=== PATIENT | male | born 1995 | race Caucasian/White ===

== ENCOUNTER 2021-02-10 08:08 | Emergency (ER) | payer OTHER ==
[2021-02-10 08:26] VITALS: BP 128/82; PULSE 55; TEMP 98.4; BMI 36.7
== END 2021-02-10 09:30 | disposition home or self-care (01) ==
LOC: JCOVINFU 08:08
DX: J20.9 Acute bronchitis, unspecified (principal)
CPT/HCPCS: 71046-TC-FY; 87804; 99284-25; C9803; U0003; U0005

== ENCOUNTER 2022-02-26 08:25 | Emergency (ER) | payer OTHER ==
[2022-02-26 08:53] VITALS: BP 145/83; PULSE 90; RESP 18; TEMP 98; BMI 36.3
[2022-02-26] MEDS ORDERED: ONDANSETRON *ODT* 4 MG TABLET SL ONE (09:16)
[2022-02-26] MEDS ORDERED: ALBUTEROL SO4 0.083% IH SOL 2.5 MG/3 ML VIAL.NEB. NEB ONE (09:16)
[2022-02-26] MEDS ORDERED: ONDANSETRON *ODT* 4 MG TABLET ONE (10:05)
[2022-02-26] MEDS ORDERED: ALBUTEROL SO4 2.5/IPRATROPIUM 0.5 INH SOL 3 ML VIAL.NEB. NEB ONE (10:05)
== END 2022-02-26 15:29 | disposition home or self-care (01) ==
LOC: JER 08:25
PROC: 3E0F7GC Introduction of Other Therapeutic Substance into Respiratory Tract, Via Natural or Artificial Opening (ICD-10-PCS; principal; 2022-02-26)
DX: J09.X2 Influenza due to identified novel influenza A virus with other respiratory manifestations (principal); R05.1 Acute cough; R51.9 Headache, unspecified; J02.9 Acute pharyngitis, unspecified
CPT/HCPCS: 0241U-QW; 99283-25; Q0162

== ENCOUNTER 2023-02-21 06:10 | Emergency (ER) | payer OTHER ==
[2023-02-21 06:28] VITALS: RESP 18; BMI 36.7
[2023-02-21] MEDS ORDERED: LIDOCAINE 4% PATCH TP ONE ×2 (07:41→07:47)
[2023-02-21] MEDS ORDERED: KETOROLAC TROMETHAMINE 30 MG/1 ML VIAL IM ONE (07:41)
[2023-02-21] MEDS ORDERED: ACETAMINOPHEN 325 MG TABLET (FP) PO ONE (07:41)
[2023-02-21] MEDS ORDERED: KETOROLAC TROMETHAMINE 30 MG/1 ML VIAL ONE (07:47)
[2023-02-21] MEDS ORDERED: ACETAMINOPHEN 325 MG TABLET (FP) ONE (07:47)
[2023-02-21 10:38] VITALS: BP 122/83; PULSE 52; TEMP 97.8
[2023-02-21] MEDS ORDERED: LIDOCAINE PATCH REMOVAL MC SCH (22:00)
== END 2023-02-21 13:12 | disposition home or self-care (01) ==
LOC: JER 06:10
PROC: 3E0233Z Introduction of Anti-inflammatory into Muscle, Percutaneous Approach (ICD-10-PCS; principal; 2023-02-21)
DX: S39.92XA Unspecified injury of lower back, initial encounter (principal); M54.9 Dorsalgia, unspecified; R20.2 Paresthesia of skin; W10.8XXA Fall (on) (from) other stairs and steps, initial encounter; Y92.009 Unspecified place in unspecified non-institutional (private) residence as the place of occurrence of the external cause
CPT/HCPCS: 72128-TC; 72131-TC; 99284-25

== ENCOUNTER 2023-10-05 04:16 | Day surgery (SDC) | payer OTHER ==
[2023-10-02 14:52] VITALS: BMI 36.7
[2023-10-05] MEDS ORDERED: LIDOCAINE HCL/PF 1% SDV 5ML VIAL ONE (07:11)
[2023-10-05] MEDS ORDERED: DEXAMETHASONE SOD PHOSPHATE 10 MG/1 ML VIAL ONE (07:12)
[2023-10-05 07:46] VITALS: RESP 18
[2023-10-05] MEDS: IOHEXOL 180 MG/1 ML ML IJ ONE ×3 (08:59)
[2023-10-05] MEDS: LIDOCAINE HCL 1% PRESERVATIVE FREE - 30ML VIAL IJ ONE ×3 (08:59)
[2023-10-05] MEDS: DEXAMETHASONE SOD PHOSPHATE 10 MG/1 ML VIAL IVPUSH ONE ×3 (08:59)
[2023-10-05 09:44] VITALS: BP 133/73; PULSE 56; TEMP 98.2
[2023-10-05] MEDS ORDERED: ACETAMINOPHEN 500 MG TABLET (FP) PO PRN (15:27)
== END 2023-10-05 09:56 | disposition home or self-care (01) ==
LOC: JASU-SURG 04:16
PROVIDERS: ATTEND Pain Medicine Pain Medicine
PROC: 3E0R3BZ Introduction of Anesthetic Agent into Spinal Canal, Percutaneous Approach (ICD-10-PCS; 2023-10-05)
PROC: 3E0R33Z Introduction of Anti-inflammatory into Spinal Canal, Percutaneous Approach (ICD-10-PCS; principal; 2023-10-05 09:15)
DX: M54.16 Radiculopathy, lumbar region (principal)
CPT/HCPCS: 76000-TC-FY; J1100